=== PATIENT | female | born 1970 | race Caucasian/White ===

== ENCOUNTER 2020-10-01 17:02 | Observation (INO) | payer OTHER ==
[~2020-10-01] VITALS: Ht 162.6 cm; Wt 88.6 kg
--- NOTE | 2020-10-01 18:24 | NUR ---
to amadou from lobby
[2020-10-01 19:09] LABS: MICROSCOPIC INDICATED
[2020-10-01 19:26] LABS: BASOPHILS % (AUTO) 1 % (0-1); EOSINOPHILS % (AUTO) 1 % (1-7); LYMPHOCYTES % (AUTO) 15 % (22-44); MEAN CORPUSCULAR HGB CONC 34.4 g/dL (32.4-35.8); MEAN PLATELET VOLUME 8.2 fL (7.4-10.4); MONOCYTES % (AUTO) 5 % (2-9); NEUTROPHILS % (AUTO) 78 % (42-75); PLATELET COUNT 299 x10^3/uL (130-400); RED BLOOD COUNT 4.98 x10^6/uL (3.82-5.3); RED CELL DISTRIBUTION WIDTH 13.9 % (9.6-15.2)
[2020-10-01 19:27] LABS: MD NO
[2020-10-01 19:31] LABS: ALANINE AMINOTRANSFERASE 26 U/L (12-78); ALBUMIN 4.1 g/dL (3.4-5.0); ANION GAP 5 mmol/L (5-15); CALCIUM 9.5 mg/dL (8.5-10.1); CHLORIDE 113 mmol/L (98-107); CREATININE 0.88 mg/dL (0.55-1.02)
[2020-10-01 19:33] LABS: ALKALINE PHOSPHATASE 95 U/L (45-117); BILIRUBIN,TOTAL 0.3 mg/dL (0.2-1.0); TOTAL PROTEIN 7.8 g/dL (6.4-8.2)
--- NOTE | 2020-10-01 20:23 | NUR ---
PT RESTING IN [facility] AT THIS TIME. DR. ASTORGA NOTIFIED OF IMAGING RESULTS AND WILL BE TO BS TO ASSESS THE PT.
[2020-10-01] MEDS ORDERED: CEFTRIAXONE PMX 1GM/50ML 50 ML IV ONE (20:30)
[2020-10-01] MEDS ORDERED: CEFTRIAXONE PMX 1GM/50ML 50 ML ONE (20:41)
[2020-10-01] MEDS ORDERED: MORPHINE SULFATE 4 MG/ML, 1ML ONE (20:55)
--- NOTE | 2020-10-01 20:59 | NUR ---
PT MEDICATED PER MAR AT THIS TIME. DR ASTORGA AT BS WITH PT. PT VSS. CALL LIGHT IS WITHIN REACH.
[2020-10-01] MEDS ORDERED: MORPHINE SULFATE 4 MG/ML, 1ML IVPush PRN ×3 (21:00→23:00)
[2020-10-01] MEDS ORDERED: ONDANSETRON 2MG/ML, 2ML IVPush PRN ×2 (21:30→23:00)
[2020-10-01] MEDS ORDERED: SODIUM CHLORIDE FLUSH 10ML SYR IVF PRN (21:30)
[2020-10-01] MEDS ORDERED: D5%-0.45% NACL 1,000 ML IV ONE (21:30)
--- NOTE | 2020-10-01 21:41 | NUR ---
Assist RN: Initiated fluids per mar. Patient up to BR with no problems. at bedside.
--- NOTE | 2020-10-01 21:47 | NUR ---
REPORT OF PT TO MIGNON WRIGHT. ALL QUESTIONS ANSWERED. PT AND FAMILY EDUCATED ON ROOM ASSIGNMENT. TECH PAGED FOR TRANSPORT OF PT TO FLOOR AT THIS TIME.
[2020-10-01] MEDS ORDERED: D5%-0.45% NACL 1,000 ML IV SCH (23:00)
[2020-10-02 01:50] VITALS: BP 143/96
[2020-10-02 02:19] VITALS: BP 93/61
[2020-10-02 02:24] LABS: HCG UR SG 1.019 (1.003-1.030)
[2020-10-02] MEDS ORDERED: CHLORHEXIDINE 15 ML UDC ONE (06:18)
[2020-10-02] MEDS ORDERED: CHLORHEXIDINE 15 ML UDC MM ONE (06:30)
[2020-10-02] MEDS ORDERED: BUPIVACAINE/PF 0.5% ONE (06:35)
[2020-10-02] MEDS ORDERED: EPINEPHRINE 1 MG/ML, 1ML ONE (06:36)
[2020-10-02] MEDS ORDERED: MIDAZOLAM 1 MG/ML, 2ML ONE (06:46)
[2020-10-02] MEDS ORDERED: FENTANYL PF 100 MCG/2ML ONE ×2 (06:46→07:43)
[2020-10-02] MEDS ORDERED: CEFAZOLIN 1,000 MG ONE (06:54)
[2020-10-02] MEDS ORDERED: SUGAMMADEX 200 MG/2 ML IVPush ONE (06:54)
[2020-10-02] MEDS ORDERED: SUCCINYLCHOLINE 20 MG/ML, 10ML ONE (06:54)
[2020-10-02] MEDS ORDERED: PROPOFOL 10 MG/ML, 20ML ONE (06:54)
[2020-10-02] MEDS ORDERED: ROCURONIUM 10MG/ML,5ML ONE (06:54)
[2020-10-02] MEDS ORDERED: ONDANSETRON 2MG/ML, 2ML ONE (06:54)
[2020-10-02] MEDS ORDERED: LIDOCAINE-MPF 2% ,5ML ONE (06:54)
[2020-10-02] MEDS ORDERED: DEXAMETHASONE 4 MG/ML, 5ML ONE (06:54)
[2020-10-02] MEDS ORDERED: OXYcodone 5 MG/5 ML ORAL.SOL UDC PO PRN ×2 (07:30→08:30)
[2020-10-02] MEDS ORDERED: OXYC5TAB2 PO (07:34)
[2020-10-02] MEDS ORDERED: OXYcodone 5 MG/5 ML ORAL.SOL UDC ONE (07:43)
[2020-10-02] MEDS: FENTANYL PF 100 MCG/2ML IV PRN ×2 (07:45→07:55)
[2020-10-02] MEDS ORDERED: ACETAMINOPHEN 650 MG/20.3 ML UDC ONE (08:00)
[2020-10-02] MEDS ORDERED: KETOROLAC 30 MG/1 ML IVPush PRN (08:30)
[2020-10-02] MEDS ORDERED: MEPERIDINE/PF 25MG/0.5ML IVPush PRN (08:30)
[2020-10-02] MEDS ORDERED: PROMETHAZINE 25 MG/ML, 1ML IVPush PRN (08:30)
[2020-10-02] MEDS ORDERED: HYDROmorphone 1 MG/ML, 1ML INJ IVPush PRN (08:30)
[2020-10-02] MEDS ORDERED: ACETAMINOPHEN 325 MG TABLET PO PRN (08:30)
[2020-10-02] MEDS ORDERED: DIPHENHYDRAMINE 50 MG/ML, 1ML IVPush PRN (08:30)
[2020-10-02] MEDS: ONDANSETRON 2MG/ML, 2ML IVPush PRN (10:57)
== END 2020-10-02 15:27 | disposition home or self-care (01) ==
LOC: ED 18:37 → EDIP 21:30 → INTOOBSV 21:30 → 4NE 22:26
PROVIDERS: ADMIT Surgery; ATTEND Surgery
DX: K35.80 Unspecified acute appendicitis (principal); Z20.822 Contact with and (suspected) exposure to COVID-19; E66.9 Obesity, unspecified; F17.210 Nicotine dependence, cigarettes, uncomplicated; Z88.0 Allergy status to penicillin; Z90.710 Acquired absence of both cervix and uterus; Z79.899 Other long term (current) drug therapy
CPT/HCPCS: 36415; 44970; 74176; 80053; 81001; 81025; 83690; 85025; 87086; 87635; 88304; 96361; 96365; 96375; 99285; G0378; J0171; J0330; J0690; J0696; J1100; J2250; J2270; J2405; J2704; J3010; J3490; S0020